=== PATIENT | female | born 1930 | race Caucasian/White ===

== ENCOUNTER 2021-04-08 09:00 | Inpatient (IN) | payer BC ==
[~2021-04-08] VITALS: Ht 165.1 cm; Wt 56.2 kg
--- NOTE | 2021-04-08 09:00 | NUR ---
AT BEDSIDE FOR EVAL.
--- NOTE | 2021-04-08 09:00 | NUR ---
PT BIB RA88 FROM [facility] C/O RECTAL BLEEDING "BRIGHT RED" PT IS AAOX2, NOT IN RESPIRATORY DISTRESS, HOOKED TO PUPPET DEVELOPER, KEPT RESTED AND COMFORTABLE. WILL CONTINUE TO MONITOR.
--- NOTE | 2021-04-08 09:05 | NUR ---
IV LINE ESTABLISHED BLOOD DRAWN AND SENT TO LAB.
[2021-04-08] MEDS ORDERED: CHOL100040 PO (09:15)
[2021-04-08] MEDS ORDERED: DONE10TA44 PO (09:15)
[2021-04-08] MEDS ORDERED: MIRT-121 GT (09:15)
[2021-04-08] MEDS ORDERED: ACET325T53 PO (09:15)
[2021-04-08] MEDS ORDERED: DOCU-141 PO (09:15)
[2021-04-08] MEDS ORDERED: PRAV40TA3 PO (09:15)
[2021-04-08] MEDS ORDERED: ACET-2605 PO (09:15)
[2021-04-08] MEDS ORDERED: ARIP5TAB10 PO (09:15)
[2021-04-08] MEDS ORDERED: RISP0.5T5 PO (09:15)
[2021-04-08] MEDS ORDERED: NIFE-35 PO (09:15)
[2021-04-08] MEDS ORDERED: PANT40TA49 PO (09:15)
[2021-04-08] MEDS ORDERED: CRAN3875 PO (09:15)
[2021-04-08] MEDS ORDERED: CRAN425C6 PO (09:15)
[2021-04-08] MEDS ORDERED: LOSA25TA27 PO (09:15)
[2021-04-08] MEDS ORDERED: CALC100067 PO (09:15)
[2021-04-08] MEDS ORDERED: CYAN100096 PO (09:15)
[2021-04-08] MEDS ORDERED: RISP1TAB97 PO (09:15)
[2021-04-08] MEDS ORDERED: VITS42.53 TP (09:16)
--- NOTE | 2021-04-08 09:30 | NUR ---
MANAGER OF ADMINISTRATION AT BEDSIDE FOR XRAY.
[2021-04-08 09:33] LABS: BASOPHILS % (AUTO) 0.2 % (0.0-2.0); EOSINOPHILS % (AUTO) 0.3 % (0.0-6.0); HEMATOCRIT 33 % (33-45); HEMOGLOBIN 10.7 g/dL (11.5-14.8); LYMPHOCYTES # (AUTO) 1.2 /CMM (0.8-4.8); LYMPHOCYTES % (AUTO) 11.5 % (20.0-44.0); MEAN CORPUSCULAR HGB CONC 33 g/dl (31.0-36.0); MEAN CORPUSCULAR VOLUME 92 fL (82-100); MONOCYTES # (AUTO) 0.4 /CMM (0.1-1.30); MONOCYTES % (AUTO) 4.1 % (2.0-12.0); NEUTROPHILS # (AUTO) 8.6 /CMM (1.8-8.9); NEUTROPHILS % (AUTO) 83.9 % (43.0-81.0); PLATELET COUNT (AUTO) 386 /CMM (150-450); RED BLOOD CELL COUNT(AUTO) 3.55 MIL/uL (4.0-5.2); WHITE BLOOD COUNT (AUTO) 10.3 K/uL (4.3-11.0)
[2021-04-08 09:48] LABS: ALBUMIN 2.4 g/dL (3.4-5.0); BILIRUBIN,DIRECT 0.1 mg/dL (0.0-0.2); BILIRUBIN,TOTAL 0.3 mg/dL (0.2-1.0); CALCIUM, SERUM 10.5 mg/dL (8.5-10.1); CREATININE 0.8 mg/dL (0.6-1.3); POTASSIUM 3.9 mmol/L (3.5-5.1); TOTAL PROTEIN, SERUM 6.6 g/dL (6.4-8.2)
--- NOTE | 2021-04-08 09:54 | NUR ---
CALLED JOANNE BELTRAN TO CALL US BACK.
--- NOTE | 2021-04-08 09:59 | NUR ---
DR. WARREN SOAP MIXER NOW. SPEAKING WITH DR. ZHU [phone]
--- NOTE | 2021-04-08 10:00 | NUR ---
COVID SPECIMEN OBTAINED AND SENT TO LAB.
--- NOTE | 2021-04-08 10:00 | NUR ---
CALLED DR. BRISENO, SPEAKING WITH DR. ZHU
--- NOTE | 2021-04-08 10:05 | NUR ---
CALLED DR. WARREN [phone]
[2021-04-08] MEDS ORDERED: IV NS 0.9% 1,000 ML BAG IV ONE ×2 (10:30)
--- NOTE | 2021-04-08 11:10 | NUR ---
GOT BED 105
--- NOTE | 2021-04-08 11:10 | NUR ---
ROOM GIVEN 105
--- NOTE | 2021-04-08 11:15 | NUR ---
REPORT GIVEN TO FOUZIA DUMONT FOR ISABELL.
[2021-04-08 12:00] VITALS: BP 111/55
--- NOTE | 2021-04-08 12:00 | NUR ---
PATIENT ADMITTING ROOM 105 FROM ER WITH YANI ARCHER X 2 CONFUSE, ABLE TO RESPONDS ALL STIMULI. ADMIT DX IS GI BLEED REPORTED BY YANIV/ER. NOTICED BLOOD ON DIAPER. HEMOGLOBIN LEVEL IS 10.7 TODAY. SKIN IS WARM TO TOUCH, KEEP CLEAN/DRY, INTACT IV SITE. RESPIRATORY EVEN AND UNLABORED IN ROOM AIR. KEEP ELEVATED HOB FOR ENSURE AIRWAY AND ASPIRATION PRECAUTION, ALSO LOWEST BED POSITION FOR SAFETY. CALL LIGHT WITHIN REACH, WILL CONTINUE TO MONITOR.
[2021-04-08] MEDS ORDERED: Z GUARD REMEDY 2 OZ OINT TP PRN (13:00)
[2021-04-08] MEDS ORDERED: ZOLPIDEM TARTRATE 5 MG TABLET PO PRN (13:00)
[2021-04-08] MEDS ORDERED: MAGNESIUM HYDROXIDE 30 ML UDC PO PRN (13:00)
[2021-04-08] MEDS ORDERED: MAG HYDROX/AL HYDROX/SIMETH 30 ML UDC PO PRN (13:00)
[2021-04-08] MEDS ORDERED: ONDANSETRON HCL/PF 4 MG/2 ML VIAL IVP PRN (13:00)
[2021-04-08] MEDS ORDERED: ACETAMINOPHEN 325 MG TABLET PO PRN (13:00)
[2021-04-08 13:38] LABS: BASOPHILS % (AUTO) 0.4 % (0.0-2.0); EOSINOPHILS % (AUTO) 0.5 % (0.0-6.0); HEMATOCRIT 30 % (33-45); HEMOGLOBIN 9.4 g/dL (11.5-14.8); LYMPHOCYTES # (AUTO) 1.4 /CMM (0.8-4.8); LYMPHOCYTES % (AUTO) 13.5 % (20.0-44.0); MEAN CORPUSCULAR HGB CONC 31 g/dl (31.0-36.0); MEAN CORPUSCULAR VOLUME 97 fL (82-100); MONOCYTES # (AUTO) 0.5 /CMM (0.1-1.30); MONOCYTES % (AUTO) 4.7 % (2.0-12.0); NEUTROPHILS # (AUTO) 8.3 /CMM (1.8-8.9); NEUTROPHILS % (AUTO) 80.9 % (43.0-81.0); PLATELET COUNT (AUTO) 323 /CMM (150-450); RED BLOOD CELL COUNT(AUTO) 3.09 MIL/uL (4.0-5.2); WHITE BLOOD COUNT (AUTO) 10.2 K/uL (4.3-11.0)
--- NOTE | 2021-04-08 14:40 | NUR ---
PATIENT WEARING CLEAR STONE WITH SILVER IN COLOR RING ON LEFT FINGER, PICTURE TAKEN.
[2021-04-08 16:00] VITALS: BP 101/55
--- NOTE | 2021-04-08 18:11 | NUR ---
RN CLOSING NOTE PATIENT RESTING IN BED, REMAINS AO X 3-4, DOES NO APPEARS DISTRESS OR DISCOMFORT. SKIN IS WARM TOUCH, KEEP CLEAN/DRY. RESPIRATORY EVEN AND UNLABORED IN ROOM AIR O2SAT 95%. KEPT ELEVATED HOB FOR ENSURE AIRWAY AND ASPIRATION PRECAUTION, ALSO LOWEST BED POSITION FOR SAFETY. CALL LIGHT WITHIN REACH, WILL ENDORSE CLINICAL RESEARCH ASSISTANT. Addendum: 04/08/21 at 1824 by WILMER WESTON RN ERROR
--- NOTE | 2021-04-08 18:25 | NUR ---
RN CLOSING NOTE PATIENT RESTING IN BED, REMAINS AO X 1-2 CONFUSE, DOES NO APPEARS DISTRESS OR DISCOMFORT. SKIN IS WARM TOUCH, KEEP CLEAN/DRY, STILL NOTED BLEEDING FROM RECTAL. RESPIRATORY EVEN AND UNLABORED IN ROOM AIR O2SAT 99%. PATIENT STARTED SOFT RESTRAINTS FOR SAFETY. KEPT ELEVATED HOB FOR ENSURE AIRWAY AND ASPIRATION PRECAUTION, ALSO LOWEST BED POSITION FOR SAFETY. CALL LIGHT WITHIN REACH, WILL ENDORSE FLAT CLOTHIER.
[2021-04-08 20:00] VITALS: BP 121/68
[2021-04-08] MEDS: DONEPEZIL 5 MG TABLET PO SCH (21:47)
[2021-04-08] MEDS: MIRTAZAPINE 15 MG TABLET GT SCH (21:49)
[2021-04-08] MEDS: ATORVASTATIN 10 MG TABLET PO SCH (21:49)
[2021-04-08] MEDS: risperiDONE 1 MG TABLET PO SCH (21:49)
[2021-04-09] VITALS: BP 117/72
--- NOTE | 2021-04-09 02:58 | NUR ---
RN OPENING NOTES Patient was seen sleeping in bed. Patient is alert and oriented x1-2 and has periods of confusion. Patient's on room air with no respiratory distress noted. Patient is on a tele monitor and in no cardiac distress. Patient has an IV access on her right AC gauge #18. Safety measures in place: Bed locked, bed alarm on, side rails up x3, and call light within easy reach from the patient. Will continue to monitor the patient.
[2021-04-09 04:00] VITALS: BP 98/57
[2021-04-09 06:13] LABS: BASOPHILS % (AUTO) 0.2 % (0.0-2.0); EOSINOPHILS % (AUTO) 0.4 % (0.0-6.0); HEMATOCRIT 25 % (33-45); HEMOGLOBIN 8.3 g/dL (11.5-14.8); LYMPHOCYTES # (AUTO) 1.5 /CMM (0.8-4.8); LYMPHOCYTES % (AUTO) 15.3 % (20.0-44.0); MEAN CORPUSCULAR HGB CONC 33 g/dl (31.0-36.0); MEAN CORPUSCULAR VOLUME 92 fL (82-100); MONOCYTES # (AUTO) 0.4 /CMM (0.1-1.30); MONOCYTES % (AUTO) 3.8 % (2.0-12.0); NEUTROPHILS # (AUTO) 7.9 /CMM (1.8-8.9); NEUTROPHILS % (AUTO) 80.3 % (43.0-81.0); PLATELET COUNT (AUTO) 327 /CMM (150-450); WHITE BLOOD COUNT (AUTO) 9.8 K/uL (4.3-11.0)
--- NOTE | 2021-04-09 06:54 | NUR ---
RN CLOSING NOTES Patient was seen sleeping in bed. Patient is alert and oriented x1-2 and has periods of confusion. Patient's on room air with no respiratory distress noted. Patient is on a tele monitor and in no cardiac distress. Patient has a saline lock on her right AC gauge #18, which is intact and patent. Safety measures in place: Bed locked, bed alarm on, side rails up x3, and call light within easy reach from the patient. Will endorse care to the day shift nurse.
[2021-04-09 07:10] LABS: CALCIUM, SERUM 9.8 mg/dL (8.5-10.1); CREATININE 0.8 mg/dL (0.6-1.3); PHOSPHORUS 3.1 mg/dL (2.5-4.9); POTASSIUM 3.8 mmol/L (3.5-5.1)
--- NOTE | 2021-04-09 07:55 | NUR ---
SENIOR PRODUCT DEVELOPMENT SCIENTIST OPENING NOTE PATIENT IS IN BED RESTING, PATIENT IS IN NO ACUTE DISTRESS. PATIENT IS ON ROOM AIR TOLERATING WELL, NO SOB NOTED. PATIENT IS ON TELE MONITOR READING SR HR 80s. PATIENT IS ON BILATERAL RESTRAINS. PATIENT HAS MUNOZ CATHETER IN PLACE. SAFETY PRECAUTIONS ARE ON, BED IS LOCKED IN THE LOWEST POSITION, WITH SIDE RAILS UP, CALL LIGHT WITHIN REACH, WILL CONTINUE TO FOLLOW CLOSELY.
[2021-04-09 08:00] VITALS: BP 105/60
[2021-04-09] MEDS: LOSARTAN POTASSIUM 25 MG TABLET PO SCH (09:00)
[2021-04-09] MEDS: risperiDONE 0.25 MG TABLET PO SCH (09:47)
[2021-04-09] MEDS: PANTOPRAZOLE 40 MG TABLET.DR PO SCH (09:47)
[2021-04-09] MEDS: DOCUSATE SODIUM 100 MG CAPSULE PO SCH (09:47)
[2021-04-09] MEDS: ENOXAPARIN SODIUM 40 MG/0.4 ML DISP.SYRIN SQ SCH (09:48)
[2021-04-09] MEDS: CYANOCOBALAMIN 500 MCG TABLET PO SCH (09:48)
[2021-04-09] MEDS: ARIPIPRAZOLE 5 MG TABLET PO SCH (09:48)
--- NOTE | 2021-04-09 10:50 | NUR ---
INCOME TAX INVESTIGATOR NOTE PATIENT HAD A BLOODY BOWEL MOVEMENT X 1
--- NOTE | 2021-04-09 11:11 | NUR ---
hgb 8.3 /hct 25 on admission hgb 10.7 STILL having some bleeding was notified waiting for returning call back
[2021-04-09 12:00] VITALS: BP 108/54
--- NOTE | 2021-04-09 12:33 | NUR ---
covid negative per lab
[2021-04-09 12:41] LABS: BASOPHILS % (AUTO) 0.4 % (0.0-2.0); EOSINOPHILS % (AUTO) 0.7 % (0.0-6.0); HEMATOCRIT 23 % (33-45); HEMOGLOBIN 7.5 g/dL (11.5-14.8); LYMPHOCYTES # (AUTO) 2.1 /CMM (0.8-4.8); LYMPHOCYTES % (AUTO) 20.8 % (20.0-44.0); MEAN CORPUSCULAR HGB CONC 33 g/dl (31.0-36.0); MEAN CORPUSCULAR VOLUME 93 fL (82-100); MONOCYTES # (AUTO) 0.5 /CMM (0.1-1.30); MONOCYTES % (AUTO) 5.1 % (2.0-12.0); NEUTROPHILS # (AUTO) 7.5 /CMM (1.8-8.9); PLATELET COUNT (AUTO) 338 /CMM (150-450); RED BLOOD CELL COUNT(AUTO) 2.47 MIL/uL (4.0-5.2); WHITE BLOOD COUNT (AUTO) 10.2 K/uL (4.3-11.0)
[2021-04-09 16:00] VITALS: BP 141/66
--- NOTE | 2021-04-09 18:26 | NUR ---
SAMPLING THEORY TEACHER CLOSING NOTE PATIENT IS IN BED RESTING, PATIENT IS IN NO ACUTE DISTRESS. PATIENT IS ON ROOM AIR TOLERATING WELL, NO SOB NOTED. PATIENT IS ON TELE MONITOR READING SR HR 80s. PATIENTS RESTRAINS ARE RELEASED. PATIENT HAS MUNOZ CATHETER IN PLACE. SAFETY PRECAUTIONS ARE ON, BED IS LOCKED IN THE LOWEST POSITION, WITH SIDE RAILS UP, CALL LIGHT WITHIN REACH, ENDORSE PATIENT TO MICROSCOPIST NURSE FOR ISABELL.
[2021-04-09 20:00] VITALS: BP 91/51
[2021-04-09] MEDS: MIRTAZAPINE 15 MG TABLET GT SCH (21:09)
[2021-04-09] MEDS: risperiDONE 1 MG TABLET PO SCH (21:10)
[2021-04-09] MEDS: ATORVASTATIN 10 MG TABLET PO SCH (21:10)
[2021-04-09] MEDS: DONEPEZIL 5 MG TABLET PO SCH (21:10)
[2021-04-10] VITALS: BP 123/72
[2021-04-10 04:00] VITALS: BP 152/83
[2021-04-10 05:56] LABS: BASOPHILS % (AUTO) 0.4 % (0.0-2.0); EOSINOPHILS % (AUTO) 0.7 % (0.0-6.0); HEMATOCRIT 26 % (33-45); HEMOGLOBIN 8.5 g/dL (11.5-14.8); LYMPHOCYTES # (AUTO) 1.7 /CMM (0.8-4.8); MEAN CORPUSCULAR HGB CONC 33 g/dl (31.0-36.0); MEAN CORPUSCULAR VOLUME 92 fL (82-100); MONOCYTES # (AUTO) 0.5 /CMM (0.1-1.30); MONOCYTES % (AUTO) 4.9 % (2.0-12.0); NEUTROPHILS # (AUTO) 8.5 /CMM (1.8-8.9); PLATELET COUNT (AUTO) 337 /CMM (150-450); RED BLOOD CELL COUNT(AUTO) 2.78 MIL/uL (4.0-5.2); WHITE BLOOD COUNT (AUTO) 10.9 K/uL (4.3-11.0)
--- NOTE | 2021-04-10 07:20 | NUR ---
RN NOTES, NO SIGNIFICANT CHANGE IN CONDITION DURING THE NIGHT, WILL ENDORSE CONTINUITY OF CARE TO ONCOMING NURSE, MINIMAL VAGINAL BLEEDING LAST NIGHT.
[2021-04-10 07:26] LABS: ALBUMIN 2.3 g/dL (3.4-5.0); BILIRUBIN,TOTAL 0.3 mg/dL (0.2-1.0); CALCIUM, SERUM 9.8 mg/dL (8.5-10.1); CREATININE 0.7 mg/dL (0.6-1.3); PHOSPHORUS 3.1 mg/dL (2.5-4.9); POTASSIUM 3.6 mmol/L (3.5-5.1); TOTAL PROTEIN, SERUM 6.1 g/dL (6.4-8.2)
--- NOTE | 2021-04-10 07:30 | NUR ---
RN OPENING NOTED PATIENT PRESENT IN BED, AWAKE, A/OX2, ON ROOM AIR, SPO2 97%, RESPIRATIONS EVEN AND UNLABORED, NO SOB OR DISTRESS NOTED, DENIES PAIN OR DISCOMFORT, NSR ON TELE-MONITOR WITH HR OF 89, ABLE TO MAKE NEEDS KNOWN, IV LINE ON R AC, PATENT, FLUSHED, COVER WITH SLEEVE FOR PATIENT SAFETY,ALL SAFETY PRECAUTIONS IN PLACE, HOB ELEVATED, CALL LIGHT IN REACH, BED LOCKED, BED ALARM ON, WILL CONT ON MONITOR
[2021-04-10 08:00] VITALS: BP 142/76
[2021-04-10] MEDS: ARIPIPRAZOLE 5 MG TABLET PO SCH (08:16)
[2021-04-10] MEDS: CYANOCOBALAMIN 500 MCG TABLET PO SCH (08:16)
[2021-04-10] MEDS: PANTOPRAZOLE 40 MG TABLET.DR PO SCH (08:16)
[2021-04-10] MEDS: risperiDONE 0.25 MG TABLET PO SCH (08:16)
[2021-04-10] MEDS: DOCUSATE SODIUM 100 MG CAPSULE PO SCH (08:17)
[2021-04-10] MEDS: ENOXAPARIN SODIUM 40 MG/0.4 ML DISP.SYRIN SQ SCH (08:17)
[2021-04-10] MEDS: LOSARTAN POTASSIUM 25 MG TABLET PO SCH (08:17)
[2021-04-10 13:46] VITALS: BP 136/63
[2021-04-10 16:00] VITALS: BP 149/69
--- NOTE | 2021-04-10 17:25 | NUR ---
RN NOTE Patient cleaned and repositioned x3, during last cleaning vaginal bleeding noted, cleaned, patient is denying pain , will cont to monitor
--- NOTE | 2021-04-10 17:26 | NUR ---
Jacob Peace ([phone])m son, would love to hear an updates regarding his mother
[2021-04-10 20:00] VITALS: BP 121/61
[2021-04-10] MEDS ORDERED: IV 1/2NS 1000 ML 1,000 ML IV ONE (20:00)
[2021-04-10] MEDS: DONEPEZIL 5 MG TABLET PO SCH (21:36)
[2021-04-10] MEDS: risperiDONE 1 MG TABLET PO SCH (21:36)
[2021-04-10] MEDS: MIRTAZAPINE 15 MG TABLET GT SCH (21:37)
[2021-04-10] MEDS: ATORVASTATIN 10 MG TABLET PO SCH (21:37)
[2021-04-11] VITALS: BP 130/60
[2021-04-11 04:00] VITALS: BP 148/74
[2021-04-11 06:12] LABS: BASOPHILS % (AUTO) 0.1 % (0.0-2.0); EOSINOPHILS % (AUTO) 0.1 % (0.0-6.0); HEMATOCRIT 23 % (33-45); HEMOGLOBIN 7.8 g/dL (11.5-14.8); LYMPHOCYTES % (AUTO) 9.3 % (20.0-44.0); MEAN CORPUSCULAR HGB CONC 34 g/dl (31.0-36.0); MEAN CORPUSCULAR VOLUME 93 fL (82-100); MONOCYTES # (AUTO) 0.5 /CMM (0.1-1.30); NEUTROPHILS % (AUTO) 85.5 % (43.0-81.0); PLATELET COUNT (AUTO) 298 /CMM (150-450); WHITE BLOOD COUNT (AUTO) 10.6 K/uL (4.3-11.0)
[2021-04-11 06:47] LABS: ALBUMIN 2.1 g/dL (3.4-5.0); BILIRUBIN,TOTAL 0.4 mg/dL (0.2-1.0); CALCIUM, SERUM 9.4 mg/dL (8.5-10.1); CREATININE 0.6 mg/dL (0.6-1.3); MAGNESIUM 1.9 mg/dL (1.8-2.4); PHOSPHORUS 3.1 mg/dL (2.5-4.9); POTASSIUM 3.6 mmol/L (3.5-5.1); TOTAL PROTEIN, SERUM 5.8 g/dL (6.4-8.2)
--- NOTE | 2021-04-11 07:30 | NUR ---
RN NOTES, NO SIGNIFICANT CHANGE IN CONDITION, ENDORSED TO DAY SHIFT NURSE FOR CONTINUATION OF CARE.
[2021-04-11 08:00] VITALS: BP 181/77
[2021-04-11] MEDS: ENOXAPARIN SODIUM 40 MG/0.4 ML DISP.SYRIN SQ SCH (09:00)
[2021-04-11] MEDS: LOSARTAN POTASSIUM 25 MG TABLET PO SCH (09:00)
[2021-04-11] MEDS: ARIPIPRAZOLE 5 MG TABLET PO SCH (09:30)
[2021-04-11] MEDS: risperiDONE 0.25 MG TABLET PO SCH (09:30)
[2021-04-11] MEDS: DOCUSATE SODIUM 100 MG CAPSULE PO SCH (09:30)
[2021-04-11] MEDS: CYANOCOBALAMIN 500 MCG TABLET PO SCH (09:30)
[2021-04-11] MEDS: PANTOPRAZOLE 40 MG TABLET.DR PO SCH (09:30)
[2021-04-11 12:00] VITALS: BP 110/69
[2021-04-11 16:00] VITALS: BP 153/68
[2021-04-11 16:04] LABS: BASOPHILS % (AUTO) 0.2 % (0.0-2.0); EOSINOPHILS % (AUTO) 0.4 % (0.0-6.0); HEMATOCRIT 23 % (33-45); HEMOGLOBIN 7.5 g/dL (11.5-14.8); LYMPHOCYTES # (AUTO) 1.6 /CMM (0.8-4.8); MEAN CORPUSCULAR HGB CONC 33 g/dl (31.0-36.0); MEAN CORPUSCULAR VOLUME 92 fL (82-100); MONOCYTES # (AUTO) 0.6 /CMM (0.1-1.30); MONOCYTES % (AUTO) 5.2 % (2.0-12.0); NEUTROPHILS # (AUTO) 9.1 /CMM (1.8-8.9); NEUTROPHILS % (AUTO) 80.2 % (43.0-81.0); PLATELET COUNT (AUTO) 315 /CMM (150-450); RED BLOOD CELL COUNT(AUTO) 2.49 MIL/uL (4.0-5.2); WHITE BLOOD COUNT (AUTO) 11.4 K/uL (4.3-11.0)
--- NOTE | 2021-04-11 18:28 | NUR ---
RN CLOSING NOTE Nadia is A/ox1, confused, reorientation needed. VSS on room air. Left wrist #22g running TKO. She continues to have vaginal bleeding and soaked 1 diaper BRB. Piter FIRE PRODUCTION OPERATOR made aware and ordered stat CBC. H&H went from 7.8 to 7.5. Pt's son came to visit at the bedside. Skin protection measures implemented, turned and repositioned q 2 hours, safety precautions in place, call light within reach, will endorse to next shift for ISABELL.
--- NOTE | 2021-04-11 20:11 | NUR ---
MS RN OPENING NOTE PATIENT A/OX1; CONFUSED. TOLERATING ROOM AIR WELL WITH NO SOB. F/C DRAINING CLEAR YELLOW URINE; PATENT AND INTACT. L WRIST #22G NS TKO; PATENT AND INTACT. SAFETY MEASURES IN PLACE: BED IN LOWEST LOCKED POSITION, SIDE RAILS UP X2, CALL LIGHT WITHIN EASY REACH, BED ALARMS ON. WILL CONTINUE PLAN OF CARE.
[2021-04-11 22:00] VITALS: BP 121/54
[2021-04-11] MEDS: DONEPEZIL 5 MG TABLET PO SCH (22:41)
[2021-04-11] MEDS: risperiDONE 1 MG TABLET PO SCH (22:41)
[2021-04-11] MEDS: ATORVASTATIN 10 MG TABLET PO SCH (22:41)
[2021-04-11] MEDS: MIRTAZAPINE 15 MG TABLET GT SCH (22:41)
[2021-04-12 04:00] VITALS: BP 132/53
--- NOTE | 2021-04-12 05:15 | NUR ---
MS RN NOTE - TEMP PATIENT NOTED WITH LOW GRADE FEVER OF 99.6. ADMINISTERED TYLENOL 650MG ORDERED. INITIATED COOLING MEASURES. WILL CONTINUE TO ASSESS TEMP.
[2021-04-12 06:41] LABS: BASOPHILS % (AUTO) 0.1 % (0.0-2.0); EOSINOPHILS % (AUTO) 0.1 % (0.0-6.0); HEMATOCRIT 22 % (33-45); HEMOGLOBIN 7.1 g/dL (11.5-14.8); LYMPHOCYTES # (AUTO) 1.3 /CMM (0.8-4.8); LYMPHOCYTES % (AUTO) 10.3 % (20.0-44.0); MEAN CORPUSCULAR HGB CONC 33 g/dl (31.0-36.0); MEAN CORPUSCULAR VOLUME 92 fL (82-100); MONOCYTES # (AUTO) 0.4 /CMM (0.1-1.30); MONOCYTES % (AUTO) 3.5 % (2.0-12.0); NEUTROPHILS # (AUTO) 10.6 /CMM (1.8-8.9); PLATELET COUNT (AUTO) 315 /CMM (150-450); RED BLOOD CELL COUNT(AUTO) 2.34 MIL/uL (4.0-5.2); WHITE BLOOD COUNT (AUTO) 12.3 K/uL (4.3-11.0)
--- NOTE | 2021-04-12 07:08 | NUR ---
MS RN CLOSING NOTE PATIENT A/OX1; CONFUSED. TOLERATING ROOM AIR WELL WITH NO SOB. F/C DRAINING DARK ANTIONETTE URINE; PATENT AND INTACT. L WRIST #22G NS TKO; PATENT AND INTACT. SAFETY MEASURES IN PLACE: BED IN LOWEST LOCKED POSITION, SIDE RAILS UP X2, CALL LIGHT WITHIN EASY REACH, BED ALARMS ON. WILL ENDORSE PLAN OF CARE TO ONCOMING MORNING RN.
[2021-04-12 07:35] LABS: CALCIUM, SERUM 9.4 mg/dL (8.5-10.1); CREATININE 0.6 mg/dL (0.6-1.3); POTASSIUM 3.9 mmol/L (3.5-5.1)
[2021-04-12 08:00] VITALS: BP 132/59
[2021-04-12] MEDS: PANTOPRAZOLE 40 MG TABLET.DR PO SCH (08:42)
[2021-04-12] MEDS: ARIPIPRAZOLE 5 MG TABLET PO SCH (08:42)
[2021-04-12] MEDS: DOCUSATE SODIUM 100 MG CAPSULE PO SCH (08:42)
[2021-04-12] MEDS: CYANOCOBALAMIN 500 MCG TABLET PO SCH (08:43)
[2021-04-12] MEDS: risperiDONE 0.25 MG TABLET PO SCH (08:43)
[2021-04-12] MEDS: ENOXAPARIN SODIUM 40 MG/0.4 ML DISP.SYRIN SQ SCH (08:44)
[2021-04-12] MEDS: LOSARTAN POTASSIUM 25 MG TABLET PO SCH (08:45)
--- NOTE | 2021-04-12 13:43 | NUR ---
MS RN NOTE GAVE REPORT TO CHIRAG AT [facility] FOR ISABELL. SON IS AWARE OF DISCHARGE. TRANSPORTATION TO [facility] AT 4PM.
[2021-04-12 16:23] VITALS: BP 132/59
[2021-04-12 16:33] LABS: BILIRUBIN,URINE NEGATIVE (NEGATIVE); COLOR,URINE YELLOW (YELLOW); LEUKOCYTE ESTERASE ,URINE MODERATE (NEGATIVE); NITRITE, URINE POSITIVE (NEGATIVE); PH,URINE 5.5 (5.0-8.0); PROTEIN,URINE 30 mg/dl (NEGATIVE); UGLUCOSE NEGATIVE (NEGATIVE); UROBILINOGEN,URINE 0.2 EU/dL (0.2)
[2021-04-12 16:59] LABS: BACTERIA,URINE 2+ /HPF (None Seen); RBC,URINE 21-50 /HPF (0-2); SQUAMOUS EPITHELIAL CELL,UR Few /HPF (None Seen); WBC,URINE 81-100 /HPF (0-3)
--- NOTE | 2021-04-12 18:33 | NUR ---
MS RN CLOSING NOTE PATIENT IS CURRENTLY LYING IN BED, RESTING. A/O X1-2, PERIODS OF CONFUSION. ON ROOM AIR - TOLERATING WELL. NO SOB NOTED, NO S/S DISTRESS NOTED. PATIENT IS PENDING AMBULANCE TRANSPORTATION FOR DISCHARGE TO [facility] - WAS SUPPOSED TO BE PICKED UP AT 4PM, THEN WAS PUSHED TO 530PM, BUT TRANSPORTATION IS STILL NOT HERE. SKIN INTACT. ALL EXITCARE AND EDUCATION REVIEWED WITH SON AT BEDSIDE. ALL DISCHARGE PAPERWORK SIGNED AND COMPLETED. IV WAS REMOVED. SAFETY MEASURES IN PLACE. CALL LIGHT WITHIN REACH. WILL ENDORSE TO [employer] ELECTRICAL ENGINEER NURSE FOR ISABELL.
--- NOTE | 2021-04-12 19:07 | NUR ---
MS ANALYSIS ENGINEER NOTE PAT[facility] @ 1900 VIA AMBULANCE. PATIENT STABLE, A/O X1-2, PERIODS OF CONFUSION. PATIENT VERBALIZES UNDERSTANDING THAT SHE IS DISCHARGING TO ANOTHER FACILITY. ALEXANDER KEPT IN PER RN FROM [facility]. SKIN IS INTACT, ALL EXITCARE AND EDUCATION GONE OVER WITH SON. FOLDER WITH DISCHARGE PAPERWORK GIVEN TO EMT. IV REMOVED, WRISTBAND REMOVED. PATIENT ACCOMPANIED TO LOBBY BY EMT'S [employer]IA [employer].
== END 2021-04-12 20:03 | DRG 760 ==
LOC: ER 09:03 → TELE1 11:14 → MEDSG1 04-11 13:01
PROVIDERS: ADMIT Internal Medicine; ATTEND Nurse Practitioner Acute Care
DX: N93.9 Abnormal uterine and vaginal bleeding, unspecified (principal); G93.41 Metabolic encephalopathy; K92.2 Gastrointestinal hemorrhage, unspecified; D62 Acute posthemorrhagic anemia; E44.0 Moderate protein-calorie malnutrition; E78.5 Hyperlipidemia, unspecified; F03.90 Unspecified dementia, unspecified severity, without behavioral disturbance, psychotic disturbance, mood disturbance, and anxiety; Z87.01 Personal history of pneumonia (recurrent); K21.9 Gastro-esophageal reflux disease without esophagitis; Z87.440 Personal history of urinary (tract) infections; F32.9 Major depressive disorder, single episode, unspecified; M62.562 Muscle wasting and atrophy, not elsewhere classified, left lower leg; M62.561 Muscle wasting and atrophy, not elsewhere classified, right lower leg; Z88.2 Allergy status to sulfonamides; Z79.899 Other long term (current) drug therapy; I10 Essential (primary) hypertension; E83.52 Hypercalcemia; R26.9 Unspecified abnormalities of gait and mobility; Z66 Do not resuscitate
CPT/HCPCS: 36415; 71045-TC; 76856-TC; 80048-TC; 80053-TC; 80061-TC; 80076-TC; 81001; 83605-TC; 83690-TC; 83735-TC; 84100-TC; 84484-TC; 85025-TC; 85730-TC; 86850-TC; 87040-TC; 87081-TC; 87086-TC; 97110-TC; 97530-TC; G0378; J1650; J3490; U0003

== ENCOUNTER 2021-04-14 08:14 | Emergency (ER) | payer BC ==
[~2021-04-14] VITALS: Ht 167.6 cm; Wt 60.8 kg
[~2021-04-14 08:14] MED LIST: ACET-2605 PO; ACET325T53 PO; ARIP5TAB10 PO; CALC100067 PO; CHOL100040 PO; CRAN3875 PO; CRAN425C6 PO; CYAN100096 PO; DOCU-141 PO; DONE10TA44 PO; LOSA25TA27 PO; MIRT-121 GT; NIFE-35 PO; PANT40TA49 PO; PRAV40TA3 PO; RISP0.5T5 PO; RISP1TAB97 PO; VITS42.53 TP
--- NOTE | 2021-04-14 08:30 | NUR ---
PATIENT SENT BY PMD FOR LOW H&H. PATIENT HAS NO COMPLAINTS AT THIS TIME. AWAKE AND ALERT, BREATHING EVEN AND UNLABORED, PLACED ON THE SUPERVISOR INSPECTION DEPARTMENT.
--- NOTE | 2021-04-14 08:54 | NUR ---
IV LINE ESTABLISHED, BLOOD DRAWN AND SENT TO LAB
[2021-04-14 08:58] LABS: BASOPHILS # (AUTO) 0.1 /CMM (0.0-0.2); BASOPHILS % (AUTO) 0.6 % (0.0-2.0); EOSINOPHILS % (AUTO) 0.6 % (0.0-6.0); HEMATOCRIT 22 % (33-45); HEMOGLOBIN 7.2 g/dL (11.5-14.8); LYMPHOCYTES # (AUTO) 1.7 /CMM (0.8-4.8); LYMPHOCYTES % (AUTO) 14.7 % (20.0-44.0); MEAN CORPUSCULAR HGB CONC 32 g/dl (31.0-36.0); MEAN CORPUSCULAR VOLUME 94 fL (82-100); MONOCYTES # (AUTO) 0.3 /CMM (0.1-1.30); MONOCYTES % (AUTO) 2.7 % (2.0-12.0); NEUTROPHILS # (AUTO) 9.3 /CMM (1.8-8.9); NEUTROPHILS % (AUTO) 81.4 % (43.0-81.0); PLATELET COUNT (AUTO) 350 /CMM (150-450); RED BLOOD CELL COUNT(AUTO) 2.39 MIL/uL (4.0-5.2); WHITE BLOOD COUNT (AUTO) 11.5 K/uL (4.3-11.0)
[2021-04-14 09:40] LABS: CALCIUM, SERUM 9.5 mg/dL (8.5-10.1); CREATININE 0.8 mg/dL (0.6-1.3); POTASSIUM 3.8 mmol/L (3.5-5.1)
--- NOTE | 2021-04-14 10:17 | NUR ---
[facility]ERL[facility] CALLED. ETA [id number]
--- NOTE | 2021-04-14 10:20 | NUR ---
REPORT GIVEN TO BRAEDEN FRAGOSO AT [facility].
--- NOTE | 2021-04-14 10:24 | NUR ---
MARGE CALLLED. ETA 30 MINS.
--- NOTE | 2021-04-14 11:02 | NUR ---
The patient is discharged from ER in stable condition and via arranged transpo.
[2021-04-14 11:03] VITALS: BP 134/68
== END 2021-04-14 11:03 ==
LOC: ER 08:24
DX: D50.0 Iron deficiency anemia secondary to blood loss (chronic) (principal); Z66 Do not resuscitate; E78.5 Hyperlipidemia, unspecified; G93.40 Encephalopathy, unspecified; K21.9 Gastro-esophageal reflux disease without esophagitis; F32.9 Major depressive disorder, single episode, unspecified; F03.90 Unspecified dementia, unspecified severity, without behavioral disturbance, psychotic disturbance, mood disturbance, and anxiety; Z88.2 Allergy status to sulfonamides; Z79.899 Other long term (current) drug therapy
CPT/HCPCS: 36415; 80048-TC; 85025-TC; 85730-TC; 86850-TC

== ENCOUNTER 2021-04-18 21:32 | Emergency (ER) | payer BC ==
[~2021-04-18] VITALS: Ht 165.1 cm; Wt 63.0 kg
--- NOTE | 2021-04-18 21:50 | NUR ---
PT SENT BY PMD FROM [facility] FOR [facility] LAB HGB 6.9. PT AAOX1, VSS, RESPIRATIONS EVEN AND UNLABORED. PT CONNECTED TO THE EMERGENCY VETERINARY TECHNICIAN AND POX
[2021-04-18 22:42] LABS: BASOPHILS % (AUTO) 0.6 % (0.0-2.0); EOSINOPHILS % (AUTO) 1.6 % (0.0-6.0); HEMATOCRIT 24 % (33-45); HEMOGLOBIN 7.5 g/dL (11.5-14.8); LYMPHOCYTES # (AUTO) 2.1 /CMM (0.8-4.8); LYMPHOCYTES % (AUTO) 24.2 % (20.0-44.0); MEAN CORPUSCULAR HGB CONC 32 g/dl (31.0-36.0); MEAN CORPUSCULAR VOLUME 95 fL (82-100); MONOCYTES # (AUTO) 0.4 /CMM (0.1-1.30); MONOCYTES % (AUTO) 4.1 % (2.0-12.0); NEUTROPHILS # (AUTO) 5.9 /CMM (1.8-8.9); NEUTROPHILS % (AUTO) 69.5 % (43.0-81.0); PLATELET COUNT (AUTO) 419 /CMM (150-450); WHITE BLOOD COUNT (AUTO) 8.5 K/uL (4.3-11.0)
[2021-04-18 22:50] LABS: ALBUMIN 2.3 g/dL (3.4-5.0); BILIRUBIN,DIRECT 0.1 mg/dL (0.0-0.2); BILIRUBIN,TOTAL 0.2 mg/dL (0.2-1.0); CALCIUM, SERUM 9.7 mg/dL (8.5-10.1); CREATININE 0.6 mg/dL (0.6-1.3); POTASSIUM 3.7 mmol/L (3.5-5.1); TOTAL PROTEIN, SERUM 6.3 g/dL (6.4-8.2)
--- NOTE | 2021-04-18 23:57 | NUR ---
REPORT GIVEN TO FOUZIA PIMENTEL AT [facility] FOR ISABELL
--- NOTE | 2021-04-19 00:17 | NUR ---
[facility] ETA [phone]
--- NOTE | 2021-04-19 01:13 | NUR ---
REPORT GIVEN TO AMBULANCE FOR ISABELL. PT STABLE TO BE DC'ED PER DR. CARSON. IV removed. Catheter intact and site benign. Pressure and 4x4 applied to site. No bleeding noted.
[2021-04-19 01:14] VITALS: BP 157/77
== END 2021-04-19 01:15 ==
LOC: ER 21:36
DX: D63.8 Anemia in other chronic diseases classified elsewhere (principal); E78.5 Hyperlipidemia, unspecified; K21.9 Gastro-esophageal reflux disease without esophagitis; F32.9 Major depressive disorder, single episode, unspecified; F03.90 Unspecified dementia, unspecified severity, without behavioral disturbance, psychotic disturbance, mood disturbance, and anxiety; Z87.440 Personal history of urinary (tract) infections; Z88.2 Allergy status to sulfonamides; Z79.899 Other long term (current) drug therapy
CPT/HCPCS: 36415; 80048-TC; 80076-TC; 85025-TC; 85730-TC; 86850-TC